=== PATIENT | female | born 1990 ===

== ENCOUNTER 2017-12-11 05:48 | Inpatient (IN) | payer OTHER ==
[~2017-12-11] VITALS: Ht 168.9 cm; Wt 89.4 kg
[2017-12-11] VITALS (16 sets, daily range): BP systolic 95–137; BP diastolic 50–82
[2017-12-11] MEDS ORDERED: CYCLOBENZAPRINE10 MG ORAL (06:42)
--- NOTE | 2017-12-11 06:55 | Immediate Post-Op Evaluation ---
Immediate Post-Op Evalulation Immediate Post-Op Evalulation Procedure: L5-S1 microdecompression & microdiscectomy Date of Evaluation: December 11, 2017 Time of Evaluation: 09:55 IV Fluids: LR 500ml Blood Products: 0 Estimated Blood Loss: 10ml Urinary Output: 300ml Blood Pressure Systolic: 137 Blood Pressure Diastolic: 57 Pulse Rate: 103 Respiratory Rate: 16 O2 Sat by Pulse Oximetry: 100 Temperature (Fahrenheit): 97.7 Pain Score (1-10): 5 Nausea: No Vomiting: No Complications none Patient Status: awake, extubated, none Drug: cefazolin 2grams Given Within 1 Hr of Incision: Yes Time Given: 07:45 Amarilis Banda M.D. December 11, 2017 06:55
--- NOTE | 2017-12-11 06:57 | Anethesia Preoperative Eval ---
Anesthesia Pre-op PMH/ROS General Date of Evaluation: December 11, 2017 Time of Evaluation: 07:20 Anesthesiologist: ASA Score: ASA 1 Mallampati Score Class I : Soft palate, uvula, fauces, pillars visible Class II: Soft palate, uvula, fauces visible Class III: Soft palate, base of uvula visible Class IV: Only hard plate visible Mallampati Classification: Class I Surgeon: sanjuana Diagnosis: back pain Surgical Procedure: L5-S1 microdecompression & microdiscectomy Anesthesia History: none Allergies: Coded Allergies: No Known Allergies (Unverified , 12/10/17) Medications: see eMAR Past Medical History Cardiovascular: Denies: HTN, CAD, UT, valve dz, arrhythmia, other Pulmonary: Denies: asthma, COPD, WES, other Gastrointestinal/Genitourinary: Denies: GERD, CRI, ESRD, other Neurologic/Psychiatric: Denies: dementia, CVA, depression/anxiety, TIA, other Endocrine: Denies: DM, hypothyroidism, steroids, other HEENT: Denies: cataract (L), cataract (R), glaucoma, [place]EN (L), NEWHALEN (R), other Hematology/Immune: Denies: anemia, DVT, bleeding disorder, other Musculoskeletal/Integumentary: Reports: other - chronic back pain Other: obesity PMH Narrative: none PSxH Narrative: none Anesthesia Pre-op Phys. Exam Physician Exam Last Vital Signs Date Time Temp Pulse Resp B/P (MAP) Pulse Ox O2 Delivery O2 Flow Rate FiO2 12/11/17 06:43 98.6 78 20 115/68 98 Room Air 98.6 Constitutional: NAD Cardiovascular: RRR Respiratory: CTA Gastrointestinal: S/NT/ND Airway Exam Mallampati Score: Class I MO: full ROM: full Teeth: intact Dentures: no upper, no lower Anesthesia Pre-op A/P Labs Urine Test Test 12/11/17 06:15 Urine HCG, Qualitative Negative (NEGATIVE) Risk Assessment & Plan Assessment: procede with ETGA Plan: ETGA Status Change Before Surgery: No Pre-Antibiotics Drug: cefazolin Given Within 1 Hr of Incision: Yes Time Given: 07:45 Amarilis Banda M.D. December 11, 2017 06:57
[2017-12-11] MEDS ORDERED: ceFAZolin sod 2 GM in D5W 110 ML IVPB ONE (07:00)
[2017-12-11] MEDS ORDERED: Ketorolac 30mg Inj ONE (07:10)
[2017-12-11] MEDS ORDERED: Lidocaine 1% MPF 10mg/ml 5ml ONE (07:10)
[2017-12-11] MEDS ORDERED: Propofol 200mg/20ml IV ONE ×4 (07:10→08:10)
[2017-12-11] MEDS ORDERED: Dexamethasone 4mg/ml vial ONE (07:10)
[2017-12-11] MEDS ORDERED: Midazolam 2mg/2ml Inj ONE (07:15)
[2017-12-11] MEDS ORDERED: fentaNYL 100 mcg/2 mL IV ONE (07:15)
[2017-12-11] MEDS ORDERED: EPINEPHrine 1mg/1ml Amp ONE (07:26)
[2017-12-11] MEDS ORDERED: Vancomycin 1gm inj IVPB ONE (07:26)
[2017-12-11] MEDS ORDERED: Thrombin 5000 units TOPIC ONE (07:27)
[2017-12-11] MEDS ORDERED: Bacitracin 50000 Units Vial ONE (07:27)
[2017-12-11] MEDS ORDERED: Bupivacaine 0.5% Inj 30 ml vial INJ ONE (07:27)
--- NOTE | 2017-12-11 07:28 | Pre-Procedure Note/Attestation ---
Pre-Procedure Note/Attestation Attestation I attest that I discussed the nature of the procedure; its benefits; risks and complications; and alternatives (and the risks and benefits of such alternatives ), prior to the procedure, with the patient (or the patient's legal metals sales representative). I attest that, if there was a reasonable possibility of needing a blood transfusion, the patient (or the patient's legal metals sales representative) was given the [facility] Services standardized written summary, pursuant to the Nathaniel Ayanna Blood Safety Act ([place] Health and Safety Code # 1645, as amended). I attest that I re-evaluated the patient just prior to the surgery and that there has been no change in the patient's H&P, except as documented below: Jose Carlos Bryant MD December 11, 2017 07:28
--- NOTE | 2017-12-11 07:29 | Pre-Procedure Note/Attestation ---
Pre-Procedure Note/Attestation Complete Prior to Procedure Procedure Narrative: RIGHT L5S1 LAMINOTOMIES, MEDIAL FACECTOMY, FORAMINOTOMY AND MICRODISCECTOMY Indications for Procedure Pre-Operative Diagnosis: LUMBAR HNP WITH RADICULOPATHY Attestation I attest that I discussed the nature of the procedure; its benefits; risks and complications; and alternatives (and the risks and benefits of such alternatives ), prior to the procedure, with the patient (or the patient's legal sales support representative). I attest that, if there was a reasonable possibility of needing a blood transfusion, the patient (or the patient's legal sales support representative) was given the [facility] Services standardized written summary, pursuant to the Nathaniel Ayanna Blood Safety Act ([place] Health and Safety Code # 1645, as amended). I attest that I re-evaluated the patient just prior to the surgery and that there has been no change in the patient's H&P, except as documented below: Jose Carlos Bryant MD December 11, 2017 07:29
[2017-12-11] MEDS ORDERED: NS Irrig 1000ml ONE (07:30)
[2017-12-11] MEDS ORDERED: Zemuron 50mg/5ml Inj IV ONE (07:30)
[2017-12-11] MEDS ORDERED: LR 1000ml ONE (07:30)
[2017-12-11] MEDS ORDERED: Sterile Water Irrig 1000ml IRRIG ONE (07:30)
[2017-12-11] MEDS ORDERED: Sugammadex Sodium 200mg/2ml vial IV ONE (07:48)
[2017-12-11] MEDS ORDERED: Ketamine 500mg Inj ONE (08:18)
[2017-12-11] MEDS ORDERED: LR 1000ml 1,000 ML IVLG SCH ×2 (09:04→10:10)
[2017-12-11] MEDS ORDERED: Acetaminophen (Non formulary) 100 ML IV SCH (09:15)
--- NOTE | 2017-12-11 09:40 | Brief Operative Note ---
Immediate Post Operative Note Operative Note Pre-op Diagnosis: LUMBAR HNP WITH RADICULOPATHY Procedure: l5s1 right microdecompression and microdiscectomy Post-op Diagnosis: same as pre-op Findings: consistent w/pre-op dx studies Surgeon: ARNOLDO Dredge Pipe Operator: EDGARDO Anesthesiologist: Anesthesia: general Specimen: yes Complications: none Condition: stable Fluids: 500CC Estimated Blood Loss: minimal - 10CC Drains: none Implant(s) used?: No Jose Carlos Bryant MD December 11, 2017 09:40
[2017-12-11] MEDS ORDERED: DiphenhydrAMINE 50mg/ml Inj IVP PRN (10:15)
[2017-12-11] MEDS ORDERED: Midazolam 2mg/2ml Inj IVP PRN (10:15)
[2017-12-11] MEDS ORDERED: Morphine Sulfate 4mg/ml Inj IVP PRN (10:15)
[2017-12-11] MEDS ORDERED: fentaNYL 100 mcg/2 mL IV PRN (10:15)
[2017-12-11] MEDS: fentaNYL 100 mcg/2 mL IV PRN ×2 (10:34→13:16)
--- NOTE | 2017-12-11 10:52 | 48 Hour Post Anesthesia Eval ---
Post Anesthesia Evaluation Procedure: L5-S1 microdecompression & microdiscectomy Date of Evaluation: December 11, 2017 Time of Evaluation: 10:45 Blood Pressure Systolic: 95 0: 58 Pulse Rate: 78 Respiratory Rate: 15 Temperature (Fahrenheit): 97.2 O2 Sat by Pulse Oximetry: 100 Airway: patent Nausea: No Vomiting: No Hydration Status: adequate Mental Status/LOC: patient returned to baseline Post-Anesthesia Complications: none Follow-up care needed: ready to discharge Amarilis Banda M.D. December 11, 2017 10:52
[2017-12-11] MEDS ORDERED: Naloxone 0.4mg/ml Inj IVP PRN (13:22)
[2017-12-11] MEDS ORDERED: Norco 5mg/325mg tab ORAL PRN (13:23)
--- NOTE | 2017-12-11 13:36 | History and Physical ---
History of Present Illness General Date patient seen: December 11, 2017 Present Illness HPI 27 year old with LUMBAR HNP WITH RADICULOPATHY admitted to for L5s1 right microdecompression and microdiscectomy. Post operatively pt is admitted to surgical floor for post op and symptomatic treatment. Allergies: Coded Allergies: No Known Allergies (Unverified , 12/10/17) Medication History Scheduled Cyclobenzaprine Hcl* (Flexeril*), 10 MG ORAL NEEDED, (Reported) Patient History Healthcare decision maker DANIEL BATISTA-GIRLFRIEND Resuscitation status Full Code Advanced Directive on File Past Medical/Surgical History Past Medical/Surgical History: (1) Lumbar radiculopathy Review of Systems All Other Systems: negative except mentioned in HPI Physical Exam General Appearance: WD/WN, no apparent distress Lines, tubes and drains: peripheral HEENT: normocephalic, anicteric Neck: non-tender, normal alignment Respiratory/Chest: lungs clear Breasts: no masses Cardiovascular/Chest: normal peripheral pulses, normal rate Abdomen: normal bowel sounds, non tender Genitourinary/Rectal: normal genital exam Extremities: normal range of motion Skin Exam: normal pigmentation, cyanotic Last 24 Hour Vital Signs Date Time Temp Pulse Resp B/P (MAP) Pulse Ox O2 Delivery O2 Flow Rate FiO2 12/11/17 11:50 97.6 78 18 108/61 99 Room Air 97.6 12/11/17 11:42 78 15 95/58 100 Room Air 12/11/17 11:21 207.0 78 15 100 12/11/17 11:15 73 15 103/59 97 Room Air 12/11/17 11:00 75 17 100/55 98 Room Air 12/11/17 10:45 78 15 95/58 100 Room Air 12/11/17 10:34 97.2 12/11/17 10:30 80 20 117/57 100 Room Air 12/11/17 10:23 207.9 103 16 100 12/11/17 10:20 72 16 137/57 100 Simple Mask 6.0 12/11/17 10:10 82 14 116/82 100 Simple Mask 6.0 12/11/17 10:00 88 15 110/73 100 Simple Mask 6.0 12/11/17 09:55 97.7 103 16 137/57 100 Simple Mask 6.0 97.7 12/11/17 06:43 98.6 78 20 115/68 98 Room Air 98.6 Laboratory Tests Test 12/11/17 06:15 Urine HCG, Qualitative Negative (NEGATIVE) Height (Feet): 5 Height (Inches): 6.50 Weight (Pounds): 197 Medications Current Medications Medications (Trade) Dose Ordered Sig/Nalini Route PRN Reason Start Time Stop Time Status Last Admin Dose Admin Acetaminophen (Tylenol) 650 mg Q4H PRN ORAL headache or temp>101 12/11/17 13:22 01/10/18 13:21 Acetaminophen/ Hydrocodone Bitart ([place] 5/325) 1 tab Q3H PRN ORAL pain score 1-3 12/11/17 13:23 12/18/17 13:22 Acetaminophen/ Hydrocodone Bitart ([place] 7.5/325) 1 tab Q3H PRN ORAL pain score 4-6 12/11/17 13:23 12/18/17 13:22 Acetaminophen/ Hydrocodone Bitart ([place] 7.5/325) 2 tab Q3H PRN ORAL pain scale 7-10 12/11/17 13:23 12/18/17 13:22 Cefazolin Sodium 1 gm/Dextrose 55 ml @ 110 mls/hr Q8H IV 12/11/17 16:00 12/12/17 08:29 Dextrose/Sodium Chloride 1,000 ml @ 100 mls/hr Q10H IV 12/11/17 14:00 01/10/18 13:59 Docusate Sodium (Colace) 100 mg TWICE A DAY ORAL 12/11/17 18:00 01/10/18 17:59 Naloxone HCl (Narcan) 0.1 mg PRN PRN IVP RR<12/min, pt unarousable 12/11/17 13:22 01/10/18 13:21 Assessment/Plan Problem List: (1) Lumbar radiculopathy ICD Codes: M54.16 - Radiculopathy, lumbar region SNOMED: [id number] Assessment/Plan symptomatic treatment pain control dvt prophylaxis. Rajni Marcelo MD December 11, 2017 13:36
[2017-12-11] MEDS: D5 1/2NS 1,000 ML IV SCH ×2 (14:00→23:24)
[2017-12-11] MEDS: HYDROcodone/Acetamin 7.5/325 tab ORAL PRN ×2 (14:02→20:37)
--- NOTE | 2017-12-11 14:02 | Diagnostic Imaging Report ---
Indication: Back pain Comparison: None Findings: Single fluoroscopic image obtained intraoperatively. Instrumentation posterior to S1 noted. IMPRESSION: Intraoperative imaging
[2017-12-11] MEDS ORDERED: Cyclobenzaprine 10mg Tab ORAL PRN (14:07)
[2017-12-11] MEDS: ceFAZolin sod 1 GM in D5W 55 ML IV SCH ×2 (16:53→23:25)
[2017-12-11] MEDS: Docusate 100mg cap ORAL SCH (18:29)
--- NOTE | 2017-12-11 18:30 | Operative Note - Dictated ---
DATE OF OPERATION: 12/11/2017 PREOPERATIVE DIAGNOSIS: L5-S1 disk herniation with stenosis and right lower extremity radiculopathy. POSTOPERATIVE DIAGNOSIS: L5-S1 disk herniation with stenosis and right lower extremity radiculopathy. PROCEDURE PERFORMED: 1. Right L5-S1 interlumbar laminotomy, medial facetectomy, foraminotomy, and microdiskectomy. 2. Intraoperative use of microscope for microdissection. SURGEON: Jose Carlos Bryant M.D. BI CONSULTANT: Barney Burgess M.D. ANESTHESIOLOGIST: Amarilis Bland M.D. ANESTHESIA: General endotracheal anesthesia. INTRAOPERATIVE FINDINGS: 1. Large herniated nucleus pulposus at L5-S1 with central and right paracentral extension causing compression of the thecal sac as well as the traversing L5 nerve root. 2. Foraminal stenosis for the exiting L5 nerve root. ESTIMATED BLOOD LOSS: 10 mL. FLUIDS: 500 mL of crystalloid. INDICATIONS: The patient is a pleasant female, who has failed nonoperative treatments. Option for above treatment was given. Risks, alternatives, and benefits were discussed with the patient at length. Risks include, but are not limited to, anesthesia complications including , medical complications including liver, kidney, cardiopulmonary deficit, bleeding, infection, dural tear, CSF leak, nerve root injury, pars fracture, instability, reherniation, as well as continued symptoms. The patient understood and wished to proceed. Written and verbal consent was given. DESCRIPTION OF OPERATION: The patient was brought into the operating room supine on a stretcher. Subsequently, appropriate IV lines were placed, 2 g of Ancef was administered, anesthesia was induced, and the patient was successfully intubated. Sequential compression devices were placed. The patient was turned over onto the Aditya frame table. All bony prominences were well padded and the abdomen was assured to lay freely. The L5-S1 interspace was positively identified with fluoroscopy and an indelible marker was used to gissel the midline. The patient was prepped and draped in usual sterile fashion with chlorhexidine scrub, ChloraPrep, and Ioban draping. At this point, the intraoperatively sterilely draped microscope was brought into the field. A midline incision was carried out over L5-S1 and at this point, a subperiosteal dissection towards the lamina at L5-S1 was done. A Fiscal Assistant retractor system was placed and a radiopaque marker was placed at the level of the pedicle. A lateral fluoroscopy was done and the S1 pedicle was found and thus the L5-S1 interspace was positively identified. At this point, with a high-speed drill, straight and curved curettes, #2, #3, and #4 Kerrison punches, an interlumbar laminotomy, medial facetectomy, removal of the ligamentum flavum, and foraminotomy for the traversing and exiting S1 nerve root and the exiting L5 nerve root was done. At this point, hemostasis was achieved with Gelfoam cautery and now with a [place] 4 and a nerve root retractor, the neural elements including the traversing S1 nerve root was carefully medially retracted. A large disk herniation was found. Stimulation of the S1 nerve and the disk was done to confirm the neural elements and the disk fragments. Once this was confirmed, a box incision was made in the posterior anulus with a #15 fresh blade, and a microdiskectomy was done. Microdissection of the nerves was done with the use of an intraoperatively sterilely draped microscope, as there were some adhesions from the disk to the nerve, which was also released with micro scissors. Once this was completed, diskectomy began with the use of Oneill instrument, pituitary rongeur, Trip curette, Peapod rongeur as well as the forward angled pituitary rongeur, and a large disk fragment was removed. This was done until no further loose fragments remained. The disk space was copiously irrigated with triple antibiotic solution and all loose fragments were removed. A check of the neural elements was done and there was no further compression. A foraminotomy for the exiting L5 nerve root was done with a #2 Kerrison punch. Once this was completed, a Valsalva 40 mmHg was done. There was no CSF leak and now attention was diverted to closure. The wound was copiously irrigated with triple antibiotic solution. Hemostasis was achieved with Gelfoam, thrombin, FloSeal and now 1 g of vancomycin powder was placed suprafascial and subfascial and the dorsal lumbar fascia was closed with #1 Vicryl sutures in a watertight interrupted fashion. The subdermal and subcuticular layers were closed with 2-0 Vicryl sutures. All sponge, needle and instrument counts were correct. The skin was closed with Dermabond. Sterile dressing tape was placed. The patient was turned supine and extubated in stable condition and was taken to recovery room in stable condition. She was found to be neurovascularly intact. The patient was admitted to the hospital for monitoring. Jose Carlos Bryant M.D. DR: GERALDINE JOB#: [id number] CC:
[2017-12-12] VITALS: BP 99/62
[2017-12-12 04:00] VITALS: BP 121/61
[2017-12-12] MEDS: HYDROcodone/Acetamin 7.5/325 tab ORAL PRN ×3 (06:28→21:54)
[2017-12-12 08:00] VITALS: BP 106/64
[2017-12-12] MEDS: ceFAZolin sod 1 GM in D5W 55 ML IV SCH (08:10)
[2017-12-12] MEDS: Docusate 100mg cap ORAL SCH ×2 (08:11→18:19)
[2017-12-12] MEDS: D5 1/2NS 1,000 ML IV SCH ×2 (10:15→21:01)
[2017-12-12 12:00] VITALS: BP 109/63
--- NOTE | 2017-12-12 12:45 | Pulmonology Progress Note ---
Assessment/Plan Problems: (1) Lumbar radiculopathy Assessment/Plan improving sitting up on the chair pain is controlled less nausea Subjective ROS Limited/Unobtainable: No Constitutional: Reports: no symptoms HEENT: Repors: no symptoms Respiratory: Reports: no symptoms Allergies: Coded Allergies: No Known Allergies (Unverified , 12/10/17) Objective Last 24 Hour Vital Signs Date Time Temp Pulse Resp B/P (MAP) Pulse Ox O2 Delivery O2 Flow Rate FiO2 12/12/17 08:00 97.6 63 20 106/64 97 Room Air 97.6 12/12/17 04:00 97.8 62 18 121/61 99 Room Air 97.8 12/12/17 00:00 97.2 70 18 99/62 99 Room Air 97.2 12/11/17 20:00 97.6 72 18 108/53 99 Room Air 97.6 12/11/17 16:00 98.3 83 18 115/60 95 Room Air 98.3 12/11/17 15:01 97.6 12/11/17 14:02 97.6 12/11/17 13:30 98.5 80 18 96/50 98 Room Air 98.5 12/11/17 13:20 98.5 80 18 96/50 98 Room Air 98.5 Intake and Output 12/11/17 12/12/17 19:00 07:00 Intake Total 1785 ml 1680 ml Output Total 1210 ml Balance 575 ml 1680 ml Intake Oral 1080 ml 480 ml IV Total 705 ml 1200 ml Output Urine Total 1200 ml Estimated Blood Loss 10 ml # Voids 2 General Appearance: WD/WN, no acute distress HEENT: normocephalic Respiratory/Chest: chest wall non-tender, normal breath sounds Breasts: no masses Cardiovascular: normal peripheral pulses, normal rate Abdomen: normal bowel sounds, soft, non tender Extremities: no clubbing Skin: no rash Current Medications Medications (Trade) Dose Ordered Sig/Nalini Route PRN Reason Start Time Stop Time Status Last Admin Dose Admin Acetaminophen (Tylenol) 650 mg Q4H PRN ORAL headache or temp>101 12/11/17 13:22 01/10/18 13:21 Acetaminophen/ Hydrocodone Bitart ([place] 5/325) 1 tab Q3H PRN ORAL pain score 1-3 12/11/17 13:23 12/18/17 13:22 Acetaminophen/ Hydrocodone Bitart ([place] 7.5/325) 1 tab Q3H PRN ORAL pain score 4-6 12/11/17 13:23 12/18/17 13:22 Acetaminophen/ Hydrocodone Bitart ([place] 7.5/325) 2 tab Q3H PRN ORAL pain scale 7-10 12/11/17 13:23 12/18/17 13:22 12/12/17 06:28 Cyclobenzaprine HCl (Flexeril) 10 mg Q8H PRN ORAL MUSCLE SPAMS 12/11/17 14:07 01/10/18 14:06 Dextrose/Sodium Chloride 1,000 ml @ 100 mls/hr Q10H IV 12/11/17 14:00 01/10/18 13:59 12/12/17 10:15 Docusate Sodium (Colace) 100 mg TWICE A DAY ORAL 12/11/17 18:00 01/10/18 17:59 12/12/17 08:11 Naloxone HCl (Narcan) 0.1 mg PRN PRN IVP RR<12/min, pt unarousable 12/11/17 13:22 01/10/18 13:21 Ondansetron HCl (Zofran) 4 mg Q6H PRN IVP Nausea & Vomiting 12/12/17 11:15 01/11/18 11:14 Rajni Marcelo MD December 12, 2017 12:45
[2017-12-12 16:00] VITALS: BP 100/57
[2017-12-12 20:00] VITALS: BP 108/69
[2017-12-13 04:00] VITALS: BP 105/55
[2017-12-13] MEDS: HYDROcodone/Acetamin 7.5/325 tab ORAL PRN ×2 (04:26→11:10)
[2017-12-13] MEDS: D5 1/2NS 1,000 ML IV SCH (04:27)
[2017-12-13 08:00] VITALS: BP 96/51
[2017-12-13] MEDS: Docusate 100mg cap ORAL SCH (09:00)
[2017-12-13] MEDS ORDERED: NORCO 5-325 TA1 EACH ORAL (10:59)
[2017-12-13] MEDS ORDERED: NAPROXEN250 MG ORAL (11:00)
[2017-12-13] MEDS ORDERED: D5 1/2NS 1000ml IV ONE ×2 (11:29)
[2017-12-13] MEDS ORDERED: Tubing IV Secondary IV ONE (11:29)
--- NOTE | 2017-12-13 22:15 | Pulmonology Progress Note ---
Assessment/Plan Problems: (1) Lumbar radiculopathy Assessment/Plan improving sitting up on the chair pain is controlled less nausea cleared or discharge d/w nurse was seen earlier today. Subjective ROS Limited/Unobtainable: No Allergies: Coded Allergies: No Known Allergies (Unverified , 12/10/17) Objective Last 24 Hour Vital Signs Date Time Temp Pulse Resp B/P (MAP) Pulse Ox O2 Delivery O2 Flow Rate FiO2 12/13/17 08:00 97.8 68 21 96/51 98 Room Air 97.8 12/13/17 04:00 98.8 81 18 105/55 98 Room Air 98.8 Intake and Output 12/12/17 12/13/17 19:00 07:00 Intake Total 1405 ml 1120 ml Balance 1405 ml 1120 ml Intake Oral 250 ml 120 ml IV Total 1155 ml 1000 ml # Voids 1 General Appearance: WD/WN HEENT: normocephalic, anicteric Respiratory/Chest: chest wall non-tender, lungs clear Abdomen: normal bowel sounds, soft, non tender Extremities: no cyanosis Skin: no lesions Neurologic/Psychiatric: tablet repair II-XII grossly normal, no motor/sensory deficits Microbiology Date/Time Source Procedure Growth Status 12/11/17 06:30 Nasal Nares MRSA Culture - Final NO METHICILLIN RESISTANT STAPH AUREUS... Complete Rajni Marcelo MD December 13, 2017 22:15
--- NOTE | 2017-12-16 11:02 | Discharge Summary ---
Discharge Summary Hospital Course Date of Admission December 11, 2017 at 05:48 Date of Discharge December 13, 2017 at 11:30 Admitting Diagnosis L5-S1 disk herniation with stenosis and right lower extremity radiculopathy. Reason for Hospitalization: elective surgery HPI Yane Stuart is a 27 year old female who was admitted on December 11, 2017 at 05:48 for L5-S1 disk herniation with stenosis and right lower extremity radiculopathy. Patient was admitted for elective surgery Consultations dr Marcelo -IM Procedures s/p 12/11/[address] Bryant 1. Right L5-S1 interlumbar laminotomy, medial facetectomy, foraminotomy, and microdiskectomy. 2. Intraoperative use of microscope for microdissection. Hospital Course cells postsurgery course of recovery uneventful pain management addressed and controlled neurovascular status stable dressing clean dry and intact ambulated with PT fall precautions maintained safe to ambulate as per PT incentive spirometry while in the bed initially with IV fluids slowly started on diet and advanced as tolerated antiemetics as needed patient was stable for discharge: stable neurovascularly, dressing clean dry and intact, pain controlled, ambulated safely, voided freely, tolerated diet, vital signs stable discharge instruction provided, including signs and symptoms to report immediately prescription for analgesics provided outpatient follow-up with a surgeon as advised FINAL DIAGNOSES 1. L5-S1 disk herniation with stenosis and right lower extremity radiculopathy. 2. s/p Right L5-S1 interlumbar laminotomy, medial facetectomy, foraminotomy, and microdiskectomy. Discharge Medications Continued Medications: Hydrocodone Bit/Acetaminophen 5-325* ([place] 5-325*) 1 Each Tablet 1 TAB ORAL Q6H PRN for For Pain, #40 TAB 0 Refills (This prescription has been renewed) Naproxen* (Naprosyn*) 250 Mg Tablet 500 MG ORAL TWICE A DAY, #40 TAB 0 Refills (This prescription has been renewed) Discharge Condition Upon Discharge: stable Discharge Disposition Patient was discharged to Home () Discharge Instructions Discharge Instructions Special Instructions I have been assigned to complete a D/C Summary on this account. I was not involved in the patient management Mayelin Oswald NP December 16, 2017 11:02
== END 2017-12-13 11:30 | disposition home or self-care (01) | DRG 520 ==
LOC: SDSOVERFLO 05:48 → 3E 11:50
DX: M51.17 Intervertebral disc disorders with radiculopathy, lumbosacral region (principal); M48.07 Spinal stenosis, lumbosacral region
CPT/HCPCS: 72020; 76001; 81025; 87081; 94003; 94150; J2250; J2405